=== PATIENT | male | born 1935 | race Caucasian/White ===

== ENCOUNTER → 2020-08-30 09:21 | Outpatient (BNVA) | payer OTHER, SELFPAY | PROVIDERS: PCP Internal Medicine; Visit Provider Urology ==

== ENCOUNTER → 2021-08-29 08:39 | Outpatient (BNVA) | payer OTHER, SELFPAY | PROVIDERS: PCP Internal Medicine; Visit Provider Urology | DX: Z13.89 Encounter for screening for other disorder (principal) ==

== ENCOUNTER 2024-06-21 10:40 | Outpatient (AMB) | payer OTHER, SELFPAY ==
--- NOTE | 2024-06-21 10:40 | A.OFFVIS_ITS ---
Intake Visit Reasons: Med Review(Last seen 2021) Intake Note: Patient is present for MED REVIEW Urology Medication:FINASTERIDE,VITAMIN B6 Antibiotic Allergy:ATORVASTATIN,PRAVASTATIN Blood Thinner:NONE Safety Equipment Testing Specialist Required: No Allergies atorvastatin [Lipitor] Allergy (Unknown, Verified 06/21/24 10:41) Unknown celecoxib [Celebrex] Allergy (Unknown, Verified 06/21/24 10:41) Unknown codeine Allergy (Unknown, Verified 06/21/24 10:41) Unknown pravastatin Allergy (Unknown, Verified 06/21/24 10:41) Unknown HPI Comments Details: Myles VELEZ is a very pleasant male. He is a patient of Dr Krishnamurthy. He is seen in the office today for the following urologic conditions. - nephrolithiasis - lower urinary tract symptoms Telephone evaluation 15 minute consultation [employer] nadira Video attempted land line only Last seen 2-1/2 years ago Waking 2-3x at night Finasteride 5 mg daily Trial imipramine Three-month follow-up Nephrolithiasis/Urolithiasis: Imaging with progressive right stones Add b-6 Review in 12m. Prior imaging includes 05/30 , a renal ultrasound, showing radiodense stone(s), bilaterally, 5-10 mm 11/30 , a renal ultrasound, 3 mm left, 3 mm right, 2 x 8 mm left - 01/02 renal ultrasound 3 mm right, 3 stones on left largest 6 mm Prostatitis/CPPS: Happy only waking once at night New mild hesitancy in the morning Change finasteride to daily They present for evaluation of, chronic prostatitis. He is currently being treated with 5AR. Testing included 07/01 , a cystoscopy - mild prostatic hypertrophy. Type of prostatitis III - noninflammatory ON LICENSE OF [facility] Medical History Benign prostatic hyperplasia with lower urinary tract symptoms GERD (gastroesophageal reflux disease) Prostatitis, chronic Review of Systems Const All systems reviewed & are unremarkable except as noted in HPI and below Reports no additional complaints Resp Reports no additional complaints GI Reports no additional complaints Reports as per HPI Musc Reports no additional complaints Physical Exam Telemedicine evaluation Appropriate responses Regular breathing rate and rhythm HEENT Head: Yes normal to inspection Ears: hearing grossly normal bilaterally Eyes General: appearance normal, both eyes and all related structures Neck Neck: Yes normal visual inspection Chest Chest palpation & inspection: normal inspection of the chest Resp Effort & Inspection: normal respiratory effort and able to speak in complete sentences Telehealth Telehealth Telehealth Platform: [employer] Location of provider rendering services: practice address Location of patient: address on file Patient Identification confirmed using: Name, : Yes Telehealth method: video Patient verbally consented to treatment: Yes Patient verbally consented to billing insurance company: Yes Patient informed of any privacy concerns related to visit: Yes Minutes spent on Phone/Video with Pt.: 15 Assessment & Plan Assessment & Plan (1) Benign prostatic hyperplasia with lower urinary tract symptoms: Code(s): N40.1 - Benign prostatic hyperplasia with lower urinary tract symptoms Category: Medical (2) Nephrolithiasis: Code(s): N20.0 - Calculus of kidney Category: Medical (3) Nocturia more than twice per night: Code(s): R35.1 - Nocturia Category: Medical Plan Add imipramine Medications: New imipramine HCl 25 mg PO BEDTIME 90 days 90 tabs 0RF R35.1 - Nocturia Changed From finasteride 5 mg PO DAILY 30 days 30 tabs 6RF To finasteride 5 mg PO DAILY 90 days 90 tabs 3RF Patient Instructions: Imaging studies, laboratory and physical exam results were discussed and reviewed in detail. No major barriers to patient understanding were identified. An opportunity to ask questions regarding the treatment plan was provided. All questions were answered. The patient expressed understanding and agreement with the above treatment plan. The patient is aware they should contact our office by phone for worsening of their current condition or the appearance of new urologic symptoms. Compliance is encouraged with any medications and followup testing that is ordered. It is a privilege to participate in the urologic care of your patient. If you have any questions or concerns regarding treatment for the above conditions, or other urologic issues, please do not hesitate to contact me. The office telephone contact is [phone]. This note is constructed using voice recognition software. While every effort has been made to ensure accuracy calender supervisor errors may have been included. Yours sincerely, Dr Jarrell Robertson MD, [facility] - Urology Providers of Expert, Compassionate Care for the Genitourinary System Coding Level of Care Code Tele Est Pt Level 4 (82736) Diagnoses Benign prostatic hyperplasia with lower urinary tract symptoms N40.1 Nephrolithiasis N20.0 Nocturia more than twice per night R35.1
== END 2024-06-21 11:29 | disposition home or self-care (01) ==
LOC: HO.HUSH 10:40
PROVIDERS: PCP Internal Medicine; Visit Provider Urology
DX: N40.1 Benign prostatic hyperplasia with lower urinary tract symptoms (principal); N20.0 Calculus of kidney; R35.1 Nocturia
CPT/HCPCS: 98004

== ENCOUNTER → 2024-06-21 10:40 | Outpatient (BNVA) | payer OTHER, SELFPAY | PROVIDERS: PCP Internal Medicine; Visit Provider Urology ==

== ENCOUNTER 2024-09-20 09:54 | Outpatient (AMB) | payer OTHER, SELFPAY ==
--- NOTE | 2024-09-20 09:55 | A.OFFVIS_ITS ---
Intake Visit Reasons: 3m follow up Intake Note: Patient is present for 3M F/U Urology Medication:VITAMIN B6,FINASTERIDE Antibiotic Allergy:ATORVASTATIN,PRAVASTATIN Blood Thinner:NONE Blacksmith Apprentice Required: No Allergies atorvastatin [Lipitor] Allergy (Unknown, Verified 09/20/24 09:56) Unknown celecoxib [Celebrex] Allergy (Unknown, Verified 09/20/24 09:56) Unknown codeine Allergy (Unknown, Verified 09/20/24 09:56) Unknown pravastatin Allergy (Unknown, Verified 09/20/24 09:56) Unknown HPI Comments Details: Myles VELEZ is a very pleasant male. He is a patient of Dr Krishnamurthy. He is seen in the office today for the following urologic conditions. - nephrolithiasis - lower urinary tract symptoms - nocturia Telephone evaluation 15 minute consultation [email or web address] Video attempted land line only Waking 2-3x at night Finasteride 5 mg daily Three-month follow-up from imipramine trial Minimal effect Switch to DDAVP Three-month follow-up with lab work Nephrolithiasis/Urolithiasis: Imaging with progressive right stones Add b-6 Prior imaging includes 05/30 , a renal ultrasound, showing radiodense stone(s), bilaterally, 5-10 mm 11/30 , a renal ultrasound, 3 mm left, 3 mm right, 2 x 8 mm left - 01/02 renal ultrasound 3 mm right, 3 stones on left largest 6 mm Prostatitis/CPPS: Happy only waking once at night New mild hesitancy in the morning Change finasteride to daily They present for evaluation of, chronic prostatitis. He is currently being treated with 5AR. Testing included 07/01 , a cystoscopy - mild prostatic hypertrophy. Type of prostatitis III - noninflammatory [facility] Medical History Benign prostatic hyperplasia with lower urinary tract symptoms GERD (gastroesophageal reflux disease) Prostatitis, chronic Review of Systems Const All systems reviewed & are unremarkable except as noted in HPI and below Reports no additional complaints Resp Reports no additional complaints GI Reports no additional complaints Reports as per HPI Musc Reports no additional complaints Physical Exam Telemedicine evaluation Appropriate responses Regular breathing rate and rhythm HEENT Head: Yes normal to inspection Ears: hearing grossly normal bilaterally Eyes General: appearance normal, both eyes and all related structures Neck Neck: Yes normal visual inspection Chest Chest palpation & inspection: normal inspection of the chest Resp Effort & Inspection: normal respiratory effort and able to speak in complete sentences Telehealth Telehealth Location of provider rendering services: practice address Location of patient: address on file Patient Identification confirmed using: Name, : Yes Telehealth method: voice only Patient verbally consented to treatment: Yes Patient verbally consented to billing insurance company: Yes Patient informed of any privacy concerns related to visit: Yes Assessment & Plan Assessment & Plan (1) Benign prostatic hyperplasia with lower urinary tract symptoms: Code(s): N40.1 - Benign prostatic hyperplasia with lower urinary tract symptoms Category: Medical (2) Nocturia more than twice per night: Code(s): R35.1 - Nocturia Category: Medical Plan Two month follow-up Trial DDAVP Orders: Orders Basic Metabolic Panel 2 Months N20.0 - Calculus of kidney, R35.1 - Nocturia Medications: New desmopressin 0.05 mg (1/2 x 0.1 mg) PO BEDTIME 90 days 45 tabs 0RF R35.1 - Nocturia Changed From finasteride 5 mg PO DAILY 90 days 90 tabs 3RF R35.1 - Nocturia To finasteride 5 mg PO .QOD 90 days 45 tabs 1RF R35.1 - Nocturia Discontinued imipramine HCl Discontinued Reason: Patient Completed Course 25 mg PO BEDTIME 90 days 90 tabs 0RF R35.1 - Nocturia Patient Instructions: This note is constructed using voice recognition software. While every effort has been made to ensure accuracy assistant auto center manager errors may have been included. Imaging studies, laboratory and physical exam results were discussed and reviewed in detail. No major barriers to patient understanding were identified. An opportunity to ask questions regarding the treatment plan was provided. All questions were answered. The patient expressed understanding and agreement with the above treatment plan. The patient is aware they should contact our office by phone for worsening of their current condition or the appearance of new urologic symptoms. Compliance is encouraged with any medications and followup testing that is ordered. It is a privilege to participate in the urologic care of your patient. If you have any questions or concerns regarding treatment for the above conditions, or other urologic issues, please do not hesitate to contact me. The office telephone contact is [phone]. Sincerely, Dr Jarrell Robertson MD, [facility] - Urology Compassionate Specialist Care for the Genitourinary System Coding Level of Care Code Tele Est Pt Level 4 (98649) Complex EM visit Add On [id number] Diagnoses Benign prostatic hyperplasia with lower urinary tract symptoms N40.1 Nocturia more than twice per night R35.1
== END 2024-09-20 11:42 | disposition home or self-care (01) ==
LOC: HO.HUSH 09:54
PROVIDERS: PCP Internal Medicine; Visit Provider Urology
DX: N40.1 Benign prostatic hyperplasia with lower urinary tract symptoms (principal); R35.1 Nocturia
CPT/HCPCS: 99214; G2211